=== PATIENT | male | born 1990 | race Caucasian/White ===

== ENCOUNTER 2023-12-29 09:29 | Emergency (ER) | payer OTHER, SELFPAY ==
[2023-12-29 09:40] VITALS: BP 128/78
--- NOTE | 2023-12-29 10:28 | EDRN ---
Tirso ISIDRO in room w/ pt at this time.
--- NOTE | 2023-12-29 10:41 | ED.GENMED ---
History of Present Illness
General
Chief Complaint: Fever
Source: patient
Exam Limitations: none
Time Seen by Provider: 12/29/23 10:26
History of Present Illness
History of Present Illness:
33-year-old male with history of intellectual disability presents with mother who states for the past 2 to 3 days she has had myalgias and a fever. Temperature has been as high as 103.7 at home. He also notes achiness in his neck and back. Mother
noticed a red circular rash over the posterior right calf. Mother notes this patient is outside frequently and is concerned about potential for Lyme. No known sick contacts. Patient was tested for COVID twice in the past 2 days which was
negative. He states the rash on his leg does not hurt or itch. No other complaints at this time
Phy Exam
Physical Exam
Physical Exam:
General: Well-appearing nontoxic male no acute respiratory distress
HEENT: Normocephalic atraumatic posterior pharynx without erythema or exudate neck is supple no adenopathy
Heart: Regular rate and rhythm
Lungs: Clear no wheeze or rales
Abdomen is soft nontender nondistended
Extremities: No cyanosis
Skin: Circular not raised nor tender or pruritic rash over the right posterior calf. This measures about 5 cm in diameter.
Neurologic exam: Alert normal gait no meningeal signs
Course
Orders/Labs/Results
Orders:
Orders
12/29/23 10:56
Complete Blood Count/With Diff Urgent
Comprehensive Metabolic Panel Urgent
Lyme Progressive Urgent
12/29/23 11:02
Acetaminophen [Tylenol] 650 mg .ROUTE .STK-MED ONE
12/29/23 11:03
Acetaminophen [Tylenol] 650 mg PO NOW STA
12/29/23 11:34
COVID-19 Antigen Urgent
Source: Nasal Swab
Abnormal Lab Results
12/29/23
10:56
WBC 3.7 L 10^3/uL
(4.8-10.8)
Plt Count 111 L 10^3/uL
(130-400)
Absolute Lymphs (auto) 0.4 L 10^3/uL
(1.2-3.4)
Lymphocytes % 11.6 L %
(20.5-51.1)
Monocytes % 14.0 H %
(1.7-9.3)
Glucose 114 H mg/dl
(70-99)
Total Bilirubin 1.5 H mg/dl
(0.2-1.3)
AST 144 H U/L
(17-59)
ALT 172 H U/L
(0-50)
Alkaline Phosphatase 142 H U/L
(38-126)
12/29/23 10:56
12/29/23 10:56
Vital Signs
Initial and Last Documented VS:
Initial Vital Signs
Temp Pulse Resp BP Pulse Ox
99.2 F 80 18 128/78 99
12/29/23 09:40 12/29/23 09:40 12/29/23 09:40 12/29/23 09:40 12/29/23 09:40
Last Documented Vital Signs
Temp Pulse Resp BP Pulse Ox
98.5 F 88 22 113/81 97
12/29/23 12:37 12/29/23 13:30 12/29/23 13:30 12/29/23 13:00 12/29/23 12:37
MDM/Problems Addressed
Differential Diagnosis Includes:
Fever with myalgias. Consider viral illness. COVID test x 2 negative. Also consider Lyme given circular rash on right leg with fever and myalgias. No respiratory distress lungs are clear considered x-ray of chest however not indicated at this
time. Lyme test pending basic labs pending. Consider empirically starting on doxycycline
*Critical Care Note
Total Time (30-74mins, 75-104mins- exclusive of procedures): Not Applicable
Update Note
Update Note:
COVID negative. Labs reviewed. Elevated transaminases, but no abdominal tenderness on assessment. Viral illnes vs Lyme. Will empirically start on doxycycline.
ED Attending Note
-
Portions of this chart may have been created with voice recognition software.� Occasional wrong word or��sound alike� substitutions may have occurred due to the inherent limitations of voice recognition software.
Discharge Plan
Departure
Patient Disposition: Home (Routine Discharge)
Date of Disposition: 12/29/23
Time of Disposition: 13:41
Patient with high blood pressure during this ER visit?: No
Discharge Problem:
Fever
Instructions: Lyme disease, Fever, Adult (DC)
Prescriptions:
New
doxycycline hyclate 100 mg capsule
100 mg PO BID 14 Days Qty: 28 0RF
Referrals:
PRIVATE,PHYSICIAN [Family Provider] -
Activity Restrictions/Additional Instructions:
Continue with Tylenol or Ibuprofen as needed for fever. Take antibiotics as directed. use precaution in the sun with antibiotics. You should receive a call if your Lyme test is positive.
Interventions
Interventions:
*Risk Screen - Suicide Last Done: 12/29/23 09:40
*General Assessment Last Done: 12/29/23 09:40
*Neglect/Abuse Screening Last Done: 12/29/23 09:40
ED- Fall Risk Assessment Last Done: 12/29/23 10:44
*ED COVID-19 Vaccine History Last Done: 12/29/23 10:44
ED- Neurological Assessment Last Done: 12/29/23 10:55
ED-Skin Assessment Last Done: 12/29/23 10:55
Discharge Date and Time
Print Language: JAPANESE
[2023-12-29 10:43] VITALS: BMI 24.2
[2023-12-29 10:55] VITALS: BP 120/80
[2023-12-29] MEDS: TYLENOL 650 MG PO (11:03)
[2023-12-29 11:05] LABS: % Basophils 0.3 % (0-2); % Immature Granulocytes 0.3 % (0-0.5); % Lymphocytes 11.6 % (20.5-51.1); % Neutrophils 73.8 % (42.2-75.2); Absolute Lymphocytes 0.4 10^3/uL (1.2-3.4); Absolute Monocytes 0.5 10^3/uL (0.1-0.6); Absolute Neutrophils 2.8 10^3/uL (1.4-6.5); Hemoglobin 15.8 g/dL (13.0-18.0); Mean Corp Hgb Conc. 34.3 g/dL (33.0-37.0); Mean Corpuscular Hgb 28.4 pg (27.0-31.0); Mean Corpuscular Volume 82.7 fL (80.0-94.0); Mean Platelet Volume 9.7 fL (7.4-10.4); Nucleated Red Blood Cells % 0 % (-); Platelet Count 111 10^3/uL (130-400); Red Blood Cell Count 5.56 10^6/uL (4.70-6.10); Red Cell Dist. Width 12.8 % (11.5-14.5); White Blood Cell Count 3.7 10^3/uL (4.8-10.8)
[2023-12-29 11:24] LABS: ALT (SGPT) 172 U/L (0-50); AST (SGOT) 144 U/L (17-59); Albumin 4.5 g/dl (3.5-5.0); Alkaline Phosphatase 142 U/L (38-126); Blood Urea Nitrogen 11 mg/dl (9-20); Calcium 9.2 mg/dl (8.4-10.2); Carbon Dioxide 25 mmol/L (22-30); Chloride 101 mmol/L (98-107); Estimated Creatinine Clearance > 125 ml/min; Glucose 114 mg/dl (70-99); Potassium 4.1 mmol/L (3.5-5.1); Sodium 136 mmol/L (135-145); Total Bilirubin 1.5 mg/dl (0.2-1.3); Total Protein 7.6 g/dl (6.3-8.2); eGFR > 60.00
--- NOTE | 2023-12-29 11:39 | EDRN ---
COVID test done and sent at this time.
[2023-12-29 12:01] VITALS: BP 103/75
[2023-12-29 12:07] LABS: COVID-19 Antigen Negative (Negative)
[2023-12-29 13:00] VITALS: BP 113/81
--- NOTE | 2023-12-29 13:47 | EDRN ---
Tirso ISIDRO in room w/pt at thistime.
[2023-12-31 14:21] LABS: Lyme Antibody Screen, EIA Negative (Negative)
== END 2023-12-29 13:58 | disposition home or self-care (01) ==
LOC: EMR 09:29
PROVIDERS: Physician Assistant; EMERGENCY PHYSICIAN Emergency Medicine
DX: R50.9 Fever, unspecified (principal); Z11.52 Encounter for screening for COVID-19; F79 Unspecified intellectual disabilities
CPT/HCPCS: 99283; 80053; 85025; 86618; 87811